=== PATIENT | male | born 1945 | race Caucasian/White ===

== ENCOUNTER 2016-10-31 07:02 | Inpatient (IN) | payer OTHER ==
[2016-10-31] VITALS (7 sets, daily range): BP systolic 102–150; BP diastolic 51–90
[~2016-10-31] VITALS: Ht 167.6 cm; Wt 112.7 kg
[~2016-10-31 07:02] MED LIST: ACTOS45 MG PO; AMARYL2 MG PO; ARTIFICIAL TEAR15 M1 RIGHT EYE; FENOFIBRATE160 M1 PO; GLUCOPHAGE1000 MG PO; NEURONTIN400 MG PO; OMEPRAZOLE40 M1 PO; OMNIPRED10 ML RIGHT EYE; ZOCOR40 MG PO; ZOVIRAX400 MG PO
[2016-10-31 08:18] LABS: POINT-OF-CARE METER ID UU13113694
[2016-10-31 11:31] LABS: POINT-OF-CARE METER ID UU13113675
[2016-10-31 12:13] LABS: HEMATOCRIT 27.4 % (38.0-50.0); MCV 84.6 FL (86-99)
[2016-10-31 16:17] LABS: POINT-OF-CARE METER ID UU13113712
[2016-10-31 18:11] LABS: HEMATOCRIT 28.6 % (38.0-50.0); MCV 85.9 FL (86-99)
[2016-10-31 22:16] LABS: POINT-OF-CARE METER ID UU13113712
[2016-11-01 04:00] VITALS: BP 146/68
[2016-11-01 07:11] LABS: HEMATOCRIT 27.7 % (38.0-50.0); MCH 27.3 PG (29.0-34.0); MCHC 32.5 G/DL (30.0-36.0); MCV 83.9 FL (86-99); MEAN PLAT.VOLUME 9.1 uM^3 (9.0-12.4); PLATELET COUNT 159 K/uL (156-360); RBC DIS.WIDTH-CV 17.8 % (11.8-14.6); RBC DIS.WIDTH-SD 54.7 % (39-53); WHITE BLOOD COUNT 6.4 K/uL (4.1-10.2)
[2016-11-01 07:56] LABS: ANION GAP 7 MEQ/L (2-14); CHLORIDE 97 MEQ/L (99-109); GFR ESTIMATE (CALCULATED) > 59 mL/min/; GLUCOSE 168 mg/dL (70-99); POTASSIUM 4.7 MEQ/L (3.7-5.4); SAMPLE HEMOLYSIS CHECK 0; SAMPLE ICTERIC CHECK 0; SAMPLE LIPEMIA CHECK 0; SODIUM 129 MEQ/L (136-147); UREA NITROGEN (BUN) 16 mg/dL (9-23)
[2016-11-01 08:00] VITALS: BP 139/72
[2016-11-01 11:29] LABS: POINT-OF-CARE METER ID UU13113712
[2016-11-01 12:00] VITALS: BP 125/62
[2016-11-01 15:49] VITALS: BP 132/67
[2016-11-01 16:43] LABS: POINT-OF-CARE METER ID UU13113712
[2016-11-01 20:31] VITALS: BP 139/72
[2016-11-01 22:07] LABS: POINT-OF-CARE METER ID UU13113712
[2016-11-02 04:43] VITALS: BP 153/77
[2016-11-02 06:44] LABS: HEMATOCRIT 28.8 % (38.0-50.0); MCH 26.2 PG (29.0-34.0); MCHC 31.9 G/DL (30.0-36.0); MCV 82.1 FL (86-99); MEAN PLAT.VOLUME 9.6 uM^3 (9.0-12.4); PLATELET COUNT 179 K/uL (156-360); RBC DIS.WIDTH-CV 17.5 % (11.8-14.6); RBC DIS.WIDTH-SD 51.9 % (39-53); RED BLOOD COUNT 3.51 M/uL (4.00-5.50); WHITE BLOOD COUNT 7.4 K/uL (4.1-10.2)
[2016-11-02 07:58] LABS: POINT-OF-CARE METER ID UU13113712
[2016-11-02 08:00] VITALS: BP 141/67
[2016-11-02] MEDS ORDERED: OXYCODONE HCL5 MG PO (10:21)
[2016-11-02] MEDS ORDERED: SENNA PLUS TAB1 EACH PO (10:21)
[2016-11-02] MEDS ORDERED: ELIQUIS2.5 MG PO (10:21)
[2016-11-02 11:30] LABS: POINT-OF-CARE METER ID UU13113712
[2016-11-02 12:00] VITALS: BP 146/78
[2016-11-02 15:24] VITALS: BP 123/70
[2016-11-02 16:38] LABS: POINT-OF-CARE METER ID UU13113712
[2016-11-02 20:08] VITALS: BP 126/71
[2016-11-02 22:09] LABS: POINT-OF-CARE METER ID UU13113712
[2016-11-03] VITALS (8 sets, daily range): BP systolic 126–156; BP diastolic 63–73
[2016-11-03 07:26] LABS: POINT-OF-CARE METER ID UU13113712
[2016-11-03 11:32] LABS: POINT-OF-CARE METER ID UU13113712
[2016-11-03 16:20] LABS: POINT-OF-CARE METER ID UU13113712
[2016-11-03 21:34] LABS: POINT-OF-CARE METER ID UU14149397
[2016-11-04 06:26] LABS: POINT-OF-CARE METER ID UU14149397
== END 2016-11-04 14:05 | DRG 470 ==
LOC: 3WEST 07:02 → 2SOUTH 07:02 → 3WEST 13:30 → 2SOUTH 13:49 → 3WEST 11-03 06:58 → 3EAST 11-03 18:08
PROVIDERS: Orthopaedic Surgery
PROC: 0SRB04A Replacement of Left Hip Joint with Ceramic on Polyethylene Synthetic Substitute, Uncemented, Open Approach (ICD-10-PCS; principal; 2016-10-31)
DX: M87.9 Osteonecrosis, unspecified (principal); Z68.41 Body mass index [BMI] 40.0-44.9, adult; G62.9 Polyneuropathy, unspecified; M16.12 Unilateral primary osteoarthritis, left hip; E11.9 Type 2 diabetes mellitus without complications; D63.8 Anemia in other chronic diseases classified elsewhere; Z82.49 Family history of ischemic heart disease and other diseases of the circulatory system
CPT/HCPCS: 71010; 80048; 82948; 85014; 85018; 85027; 94799; 97530 GP; J0131; J0690; J1815; J1885; J2250; J2405; J7050; J7120; S0020